=== PATIENT | female | born 1990 | race Caucasian/White ===

== ENCOUNTER 2019-01-17 13:28 | Emergency (ER) | payer OTHER, BC ==
[~2019-01-17] VITALS: Ht 162.6 cm; Wt 72.6 kg
[2019-01-17] MEDS ORDERED: IBUPROFEN 800800 M1 PO (14:32)
[2019-01-17 14:43] VITALS: BP 103/71
== END 2019-01-17 14:44 | disposition home or self-care (01) ==
LOC: M.ERS 13:28
DX: S60.221A Contusion of right hand, initial encounter (principal); W22.8XXA Striking against or struck by other objects, initial encounter; Y93.89 Activity, other specified; Y92.89 Other specified places as the place of occurrence of the external cause; Y99.8 Other external cause status; Z88.8 Allergy status to other drugs, medicaments and biological substances